=== PATIENT | female | born 1950 | race Caucasian/White ===

== ENCOUNTER → 2017-07-02 13:01 | Outpatient (CLI) | payer OTHER ==
[2015-01-19 12:08] VITALS: BMI 22.7
[~2017-07-02 13:01] MED LIST: ALENDRONATE SOD70 MG PO; ALTOPREV40 MG PO; BAYER CHEWABLE81 MG PO; BETAPACE 120 M120 MG PO; LANOXIN250 MCG PO; OXYBUTYNIN CHLOR5 MG PO; VITAMIN B-1000 MCG/M IM
== END | disposition home or self-care (01) ==
LOC: D.RAD 13:00
DX: R13.10 Dysphagia, unspecified (principal)

== ENCOUNTER → 2017-08-29 12:53 | Outpatient (CLI) | payer MEDICAID ==
[2015-01-19 12:08] VITALS: BMI 22.7
== END | disposition home or self-care (01) ==
LOC: D.RAD 12:53
DX: R13.10 Dysphagia, unspecified (principal)